=== PATIENT | female | born 1945 | race Caucasian/White ===

== ENCOUNTER 2023-07-05 10:14 | Emergency (ER) | payer OTHER, MEDICARE, SELFPAY ==
[2023-07-05 10:41] VITALS: BP 161/104
--- NOTE | 2023-07-05 14:00 | ED.GENMED ---
History of Present Illness
General
Chief Complaint: Head Injury
Source: patient
Exam Limitations: none
Time Seen by Provider: 07/05/23 12:36
Nursing documentation reviewed up to this point in time: agreed with
Travel History
Have you had any contact with someone who has COVID-19?: No
Do you have any symptoms of coronavirus? Fever > 100 degrees, chills, cough, shortness of breath, sore throat, loss of taste or smell, muscle aches, or headache?: No
History of Present Illness
History of Present Illness:
78-year-old female was at work. 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 She denies loss of consciousness. She is not on blood thinners. She had a
headache but denies now. She denies any nausea vomiting neck pain upper or lower extremity pain. No other complaints.
Past History
Past History
ED Past Medical History: HTN, Hypercholesterolemia, Renal failure and Other (diverticulitis)
ED Past Surgical History: Bowel resection, Cholecystectomy and Gynecological
Social History
Tobacco: Non-smoker
Alcohol: None
Drug: None
Living: with family
Employment: Employed
Family History
Family History: Other (n/c)
Review of Systems
Review of Systems
Allergies reviewed?: Yes
All Other Systems: ROS reviewed and negative except as documented in HPI and ROS
Constitutional: Reports no symptoms; Denies fever, fatigue or chills
Respiratory: Reports no symptoms
Cardiac: Reports no symptoms
ABD/GI: Reports no symptoms; Denies nausea or vomiting
Musculoskeletal: Reports no symptoms
Skin: Reports other (laceration to right head )
Neurological: Reports headache (Patient had headache after injury headache since resolved no loss of conscious)
Hematologic/Lymphatic: Reports no symptoms
Psychiatric: Reports no symptoms
Phy Exam
General Physical Exam
General Presentation: no apparent distress
General age: appears stated age
General Skin: warm and dry
General Habitus: normal
General Mental: alert
General Hydration: appears well hydrated
ENT Exam
ENT Exam: EOMI and neck supple
Eye Exam
Eye Exam: PERRL and EOMI
Eye Exam General: PERRL: bilateral and EOM intact: bilateral
Pupil Exam: Bilateral: round and reactive
Neurological Exam
Neurological Exam: alert, oriented x3, no motor deficits and no sensory deficits
[place] Coma Scale
Eye Opening: Spontaneous
Verbal Response: Oriented
Motor Response: Obeys Commands
GCS Total Score: 15
Musculoskeletal Exam
Musculoskeletal Exam: full ROM and other (No hematoma to head no bony cervical spine thoracic or lumbar tenderness full range of motion all extremities)
Skin Exam
Skin Exam: normal color, warm/dry and other (Less than 1/2 cm partial-thickness laceration with surrounding abrasion to right head temporal area)
Psychiatric Exam
Psychiatric Exam: normal mood/affect
Course
Orders/Labs/Results
Orders:
Orders
07/05/23 12:56
CT Cervical Spine W/o Iv Contr Urgent
Comment:
Reason For Exam: trauma
CT Head W/o Iv Contrast Urgent
Comment:
Reason For Exam: trauma
Vital Signs
Initial and Last Documented VS:
Initial Vital Signs
Temp Pulse Resp BP Pulse Ox
97.8 F 72 16 161/104 98
07/05/23 10:41 07/05/23 10:41 07/05/23 10:41 07/05/23 10:41 07/05/23 10:41
Last Documented Vital Signs
Temp Pulse Resp BP Pulse Ox
97.8 F 72 16 161/104 98
07/05/23 10:41 07/05/23 10:41 07/05/23 10:41 07/05/23 10:41 07/05/23 10:41
Procedures
Laceration Closure
Right Lateral Head:
Status of Wound: clean
Size of Wound in cm: 0.5
Description of Wound Edges: sharp
Preparation: cleaned with saline
Revision/Debridement: irrigate-direct pressure
Type of Closure: Dermabond-skin glue
MDM/Problems Addressed
Differential Diagnosis Includes:
Not limited to head injury intracranial hemorrhage, laceration abrasion.
MDM/Problems Addressed:
78-year-old female describes mechanical fall at work hitting the right side of her head no blood thinners or loss of consciousness headache has since resolved. Patient awake alert no acute distress able to give history. No other injuries. Small
laceration to right lateral head was repaired as documented. CT head and cervical spine negative. Patient is up-to-date on tetanus. Wound care reviewed.
*Radiology
Radiology exam reviewed: radiology read reviewed
*Pulse Oximetry
Patient hypoxic: no
*Critical Care Note
Total Time (30-74mins, 75-104mins- exclusive of procedures): Not Applicable
ED Attending Note
-
Portions of this chart may have been created with voice recognition software.� Occasional wrong word or��sound alike� substitutions may have occurred due to the inherent limitations of voice recognition software.
Discharge Plan
Departure
Patient Disposition: Home (Routine Discharge)
Date of Disposition: 07/05/23
Time of Disposition: 14:09
Patient with high blood pressure during this ER visit?: Yes
Covid-19: Not Applicable
Discharge Problem:
Head injury
Instructions: Laceration Repair With Glue (DC), Head Injury in Adults (DC), BLOOD PRESSURE
Prescriptions:
No Action
calcium carbonate [Oyster Shell Calcium 500] 500 MG tablet
500 mg PO BID
escitalopram oxalate 20 MG tablet
20 mg PO DAILY
rosuvastatin 10 MG tablet
10 mg PO DAILY
bupropion HCl 150 MG tablet extended release 24 hr
150 mg PO HS
cholecalciferol (vitamin D3) 1,000 UNITS tablet
2,000 units PO DAILY
multivitamin with folic acid [Tab-A-Sapna] 1 TABLET tablet
1 tab PO DAILY
valsartan 80 MG tablet
80 mg PO DAILY
PreserVision AREDS-2 1 EACH capsule
1 ea PO BID
acetaminophen 325 MG tablet
325 mg PO Q6 PRN (Reason: pain) Qty: 30 0RF
calcitriol 0.25 mcg Capsule
0.25 mcg PO Q48H
Prolia 60 mg/mL Syringe
60 mg SC [id number]
Rx Instructions:
Next dose 04/2023
albuterol sulfate [ProAir HFA] 90 mcg/actuation HFA aerosol inhaler
1 puff inhalation Q4HPRN PRN (Reason: shortness of breath) Qty: 6.7 0RF
prednisone 20 mg tablet
40 mg PO DAILY 5 Days Qty: 10 0RF
Referrals:
Flora Foreman MD [Family Provider] -
Activity Restrictions/Additional Instructions:
Keep wound clean and dry for 24 hours after 24 hours you can lightly wet wound.
Glue will flake off in 5 to 7 days. You may take Tylenol if needed. Follow-up with family doctor inthe next several days for reevaluation return if any worsening of symptoms.
Interventions
Interventions:
*Risk Screen - Suicide Last Done: 07/05/23 10:41
*General Assessment Last Done: 07/05/23 10:41
*Neglect/Abuse Screening Last Done: 07/05/23 10:41
ED- Neurological Assessment Last Done: 07/05/23 11:40
ED-Skin Assessment Last Done: 07/05/23 13:00
[2023-07-05 14:22] VITALS: BP 198/104
[2023-07-05] MEDS: ADACEL 0.5 ML IM (14:26)
== END 2023-07-05 14:31 | disposition home or self-care (01) ==
LOC: EMR 10:14
PROVIDERS: EMERGENCY PHYSICIAN Emergency Medicine; FAMILY PHYSICIAN Internal Medicine
DX: S09.90XA Unspecified injury of head, initial encounter (principal); W19.XXXA Unspecified fall, initial encounter; Z23 Encounter for immunization; E78.00 Pure hypercholesterolemia, unspecified; I10 Essential (primary) hypertension; Z90.49 Acquired absence of other specified parts of digestive tract
CPT/HCPCS: 99284; 90471; 70450; 72125; 90715

== ENCOUNTER → 2023-10-14 14:06 | Outpatient (REF) | payer MEDICARE, OTHER, SELFPAY | LOC: HWRAD 14:06 | PROVIDERS: ATTENDING PHYSICIAN Internal Medicine | DX: M54.50 Low back pain, unspecified (principal) | CPT/HCPCS: 72110 ==

== ENCOUNTER → 2023-11-13 11:27 | Outpatient (REF) | payer MEDICARE, OTHER, SELFPAY | LOC: CLAB 11:27 | PROVIDERS: ATTENDING PHYSICIAN Specialist | DX: C67.9 Malignant neoplasm of bladder, unspecified (principal) | CPT/HCPCS: 88112 ==

== ENCOUNTER → 2023-12-04 10:32 | Outpatient (REF) | payer MEDICARE, OTHER, SELFPAY ==
[2023-12-04 12:29] LABS: ALT (SGPT) 20 U/L (0-35); AST (SGOT) 30 U/L (14-36); Albumin 4.1 g/dl (3.5-5.0); Alkaline Phosphatase 76 U/L (38-126); Blood Urea Nitrogen 47 mg/dl (7-17); Calcium 11.2 mg/dl (8.4-10.2); Carbon Dioxide 27 mmol/L (22-30); Chloride 108 mmol/L (98-107); Glucose 81 mg/dl (70-99); HDL Cholesterol 55 mg/dl; LDL Cholesterol, Calculated 68 mg/dl; Potassium 4.6 mmol/L (3.5-5.1); Sodium 140 mmol/L (135-145); Total Bilirubin 0.5 mg/dl (0.2-1.3); Total Cholesterol 161 mg/dl (50-199); Total Protein 6.2 g/dl (6.3-8.2); Triglyceride 191 mg/dl (10-149); Very Low Density Lipoprotein 38 mg/dl (0-30); eGFR 17.62
== END ==
LOC: HWLAB 10:32
PROVIDERS: ATTENDING PHYSICIAN Internal Medicine
DX: I10 Essential (primary) hypertension (principal); E78.5 Hyperlipidemia, unspecified
CPT/HCPCS: 36415; 80053; 80061

== ENCOUNTER → 2023-12-11 13:28 | Outpatient (REF) | payer MEDICARE, OTHER, SELFPAY | LOC: HWWDC 13:28 | PROVIDERS: ATTENDING PHYSICIAN Internal Medicine | DX: Z12.31 Encounter for screening mammogram for malignant neoplasm of breast (principal) | CPT/HCPCS: 77063; 77067 ==

== ENCOUNTER → 2023-12-19 11:46 | Outpatient (REF) | payer MEDICARE, OTHER, SELFPAY ==
[2023-12-19 15:45] LABS: Urine Albumin Trace (Neg - Trace); Urine Bilirubin Negative (Negative); Urine Character Clear (Clear); Urine Color Yellow; Urine Glucose Negative (Negative); Urine Ketone Negative (Negative); Urine Leukocyte Negative (Negative); Urine Nitrite Negative (Negative); Urine Occult Blood Negative (Negative); Urine Specific Gravity 1.025 (<1.030); Urine Urobilinogen Negative (Neg - 1+)
[2023-12-19 15:57] LABS: Blood Urea Nitrogen 49 mg/dl (7-17); Calcium 10.2 mg/dl (8.4-10.2); Carbon Dioxide 23 mmol/L (22-30); Glucose 73 mg/dl (70-99); Phosphorus 3.4 mg/dl (2.5-4.5); Sodium 139 mmol/L (135-145); eGFR 18.44
[2023-12-19 16:02] LABS: Chloride 108 mmol/L (98-107)
[2023-12-19 16:22] LABS: Protein/creatinine Ratio 0.2; Urine Protein 33 mg/dl
== END ==
LOC: HWLAB 11:46
PROVIDERS: ATTENDING PHYSICIAN Specialist; FAMILY PHYSICIAN Internal Medicine
DX: I10 Essential (primary) hypertension (principal); N18.30 Chronic kidney disease, stage 3 unspecified; N25.81 Secondary hyperparathyroidism of renal origin; E83.52 Hypercalcemia
CPT/HCPCS: 36415; 80048; 81003; 82570; 84100; 84156

== ENCOUNTER → 2024-01-10 11:47 | Outpatient (REF) | payer MEDICARE, OTHER, SELFPAY ==
[2024-01-10 16:00] LABS: Blood Urea Nitrogen 44 mg/dl (7-17); Carbon Dioxide 24 mmol/L (22-30); Chloride 107 mmol/L (98-107); Glucose 85 mg/dl (70-99); Sodium 143 mmol/L (135-145); eGFR 22.53
== END ==
LOC: HWLAB 11:47
PROVIDERS: ATTENDING PHYSICIAN Specialist; FAMILY PHYSICIAN Internal Medicine
DX: I10 Essential (primary) hypertension (principal); N18.30 Chronic kidney disease, stage 3 unspecified; N28.1 Cyst of kidney, acquired; R80.9 Proteinuria, unspecified
CPT/HCPCS: 36415; 80048

== ENCOUNTER → 2024-02-05 12:59 | Outpatient (REF) | payer MEDICARE, OTHER, SELFPAY ==
[2024-02-05 16:58] LABS: Intact PTH 87.7 pg/ml (13.6-85.8)
[2024-02-05 17:38] LABS: Blood Urea Nitrogen 52 mg/dl (7-17); Calcium 11.8 mg/dl (8.4-10.2); Carbon Dioxide 24 mmol/L (22-30); Chloride 106 mmol/L (98-107); Glucose 88 mg/dl (70-99); Potassium 4.7 mmol/L (3.5-5.1); Sodium 141 mmol/L (135-145); eGFR 17.62
== END ==
LOC: HWLAB 12:59
PROVIDERS: ATTENDING PHYSICIAN Specialist; FAMILY PHYSICIAN Internal Medicine
DX: I10 Essential (primary) hypertension (principal); N18.30 Chronic kidney disease, stage 3 unspecified; C67.9 Malignant neoplasm of bladder, unspecified
CPT/HCPCS: 36415; 80048; 83970

== ENCOUNTER → 2024-04-13 13:05 | Outpatient (REF) | payer MEDICARE, OTHER, SELFPAY ==
[2024-04-13 14:09] LABS: 24 Hour Urine Total Volume 1400 ml
[2024-04-13 14:39] LABS: Urine Calcium 4.5 mg/dl
[2024-04-13 14:40] LABS: 24 Hour Urine Creatinine 0.991 gm/day (0.8-1.8)
[2024-04-13 14:50] LABS: Calcium 9.4 mg/dl (8.4-10.2); Phosphorus 2.7 mg/dl (2.5-4.5)
[2024-04-13 15:01] LABS: Vitamin D, 25-OH*** 62.8 ng/mL (30-80)
[2024-04-15 21:39] LABS: Free Kappa Light Chains,Quant 37.99 mg/L (3.30-19.40); Free Lambda Light Chains,Quant 22.29 mg/L (5.71-26.30)
[2024-04-15 22:11] LABS: Vitamin D 1,25 Dihydroxy 75.7 pg/mL (19.9-79.3)
[2024-04-16 01:20] LABS: Angiotensin-1-converting Enzym 55 U/L (16-85)
[2024-04-17 01:09] LABS: Albumin 4.28 g/dL (3.75-5.01); Alpha 1 Globulin 0.27 g/dL (0.19-0.46); Alpha 2 Globulin 0.63 g/dL (0.48-1.05); SPEP IFE Reflex Not Done; Total Protein-Electrophoresis 6.6 g/dL (6.3-8.2)
== END ==
LOC: REG 13:05
PROVIDERS: ATTENDING PHYSICIAN Specialist
DX: I10 Essential (primary) hypertension (principal); N18.30 Chronic kidney disease, stage 3 unspecified; E83.52 Hypercalcemia
CPT/HCPCS: 36415; 81050; 82164; 82306; 82310; 82340; 82570; 82652; 83519; 83521; 84100; 84155; 84165

== ENCOUNTER → 2024-05-15 12:31 | Outpatient (REF) | payer MEDICARE, OTHER, SELFPAY ==
[2024-05-15 16:17] LABS: Blood Urea Nitrogen 35 mg/dl (7-17); Calcium 9.4 mg/dl (8.4-10.2); Carbon Dioxide 21 mmol/L (22-30); Chloride 109 mmol/L (98-107); Glucose 82 mg/dl (70-99); Potassium 4.4 mmol/L (3.5-5.1); Sodium 140 mmol/L (135-145); eGFR 26.69
== END ==
LOC: HWLAB 12:31
PROVIDERS: ATTENDING PHYSICIAN Specialist; FAMILY PHYSICIAN Internal Medicine
DX: I10 Essential (primary) hypertension (principal); N18.30 Chronic kidney disease, stage 3 unspecified; C67.9 Malignant neoplasm of bladder, unspecified; E83.52 Hypercalcemia
CPT/HCPCS: 36415; 80048

== ENCOUNTER → 2024-07-06 11:48 | Outpatient (REF) | payer MEDICARE, OTHER, SELFPAY ==
[2024-07-06 15:46] LABS: ALT (SGPT) 29 U/L (0-35); AST (SGOT) 34 U/L (14-36); Albumin 4.3 g/dl (3.5-5.0); Alkaline Phosphatase 103 U/L (38-126); Blood Urea Nitrogen 29 mg/dl (7-17); Calcium 10.8 mg/dl (8.4-10.2); Carbon Dioxide 25 mmol/L (22-30); Chloride 107 mmol/L (98-107); Glucose 90 mg/dl (70-99); HDL Cholesterol 60 mg/dl; LDL Cholesterol, Calculated 46 mg/dl; Potassium 4.5 mmol/L (3.5-5.1); Sodium 141 mmol/L (135-145); Total Bilirubin 0.7 mg/dl (0.2-1.3); Total Cholesterol 133 mg/dl (50-199); Total Protein 6.3 g/dl (6.3-8.2); Triglyceride 138 mg/dl (10-149); Very Low Density Lipoprotein 27 mg/dl (0-30)
[2024-07-06 15:52] LABS: % Basophils 1.4 % (0-2); % Lymphocytes 31.3 % (20.5-51.1); % Neutrophils 49.3 % (42.2-75.2); Absolute Basophils 0.1 10^3/uL (0-0.2); Absolute Eosinophils 0.2 10^3/uL (0-0.7); Absolute Lymphocytes 1.1 10^3/uL (1.2-3.4); Absolute Monocytes 0.4 10^3/uL (0.1-0.6); Absolute Neutrophils 1.7 10^3/uL (1.4-6.5); Hematocrit 33.3 % (37.0-47.0); Mean Corpuscular Volume 90.7 fL (81.0-99.0); Mean Platelet Volume 11.7 fL (7.4-10.4); Nucleated Red Blood Cells % 0 %; Platelet Count 121 10^3/uL (130-400); Red Blood Cell Count 3.67 10^6/uL (4.20-5.40); Red Cell Dist. Width 12.4 % (11.5-14.5); White Blood Cell Count 3.5 10^3/uL (4.8-10.8)
[2024-07-06 16:12] LABS: TSH Reflex To Free T4 2.65 uIU/ml (0.47-4.68)
== END ==
LOC: HWLAB 11:48
PROVIDERS: ATTENDING PHYSICIAN Internal Medicine
DX: R19.7 Diarrhea, unspecified (principal); E78.2 Mixed hyperlipidemia; R53.83 Other fatigue
CPT/HCPCS: 36415; 80053; 80061; 84443; 85025

== ENCOUNTER → 2024-07-29 16:41 | Outpatient (REF) | payer MEDICARE, OTHER, SELFPAY | LOC: CLAB 16:41 | PROVIDERS: ATTENDING PHYSICIAN Specialist | DX: N39.0 Urinary tract infection, site not specified (principal) | CPT/HCPCS: 87086; 87088; 87186 ==

== ENCOUNTER → 2024-10-27 10:28 | Outpatient (REF) | payer MEDICARE, OTHER, SELFPAY ==
[2024-10-27 13:28] LABS: Blood Urea Nitrogen 41 mg/dl (7-17); Calcium 9.9 mg/dl (8.4-10.2); Carbon Dioxide 20 mmol/L (22-30); Chloride 116 mmol/L (98-107); Glucose 81 mg/dl (70-99); Phosphorus 3.4 mg/dl (2.5-4.5); Potassium 4.5 mmol/L (3.5-5.1); Sodium 144 mmol/L (135-145); eGFR 26.69
[2024-10-27 13:34] LABS: Protein/creatinine Ratio 0.4; Urine Protein 72 mg/dl
[2024-10-28 16:49] LABS: Intact PTH 480.1 pg/ml (13.6-85.8)
== END ==
LOC: HWLAB 10:28
PROVIDERS: ATTENDING PHYSICIAN Specialist; FAMILY PHYSICIAN Internal Medicine
DX: I10 Essential (primary) hypertension (principal); N18.30 Chronic kidney disease, stage 3 unspecified; E83.52 Hypercalcemia
CPT/HCPCS: 36415; 80048; 82570; 83970; 84100; 84156

== ENCOUNTER → 2024-11-02 08:58 | Outpatient (REF) | payer MEDICARE, OTHER, SELFPAY ==
[2024-11-02 10:09] LABS: ALT (SGPT) 29 U/L (0-35); AST (SGOT) 30 U/L (14-36); Albumin 4.2 g/dl (3.5-5.0); Alkaline Phosphatase 100 U/L (38-126); Blood Urea Nitrogen 29 mg/dl (7-17); Calcium 9.2 mg/dl (8.4-10.2); Carbon Dioxide 21 mmol/L (22-30); Chloride 118 mmol/L (98-107); Glucose 90 mg/dl (70-99); HDL Cholesterol 67 mg/dl; LDL Cholesterol, Calculated 64 mg/dl; Potassium 4.4 mmol/L (3.5-5.1); Sodium 144 mmol/L (135-145); Total Bilirubin 0.3 mg/dl (0.2-1.3); Total Cholesterol 152 mg/dl (50-199); Total Protein 6.5 g/dl (6.3-8.2); Triglyceride 107 mg/dl (10-149); Very Low Density Lipoprotein 21 mg/dl (0-30)
== END ==
LOC: REG 08:58
PROVIDERS: ATTENDING PHYSICIAN Specialist; FAMILY PHYSICIAN Internal Medicine
DX: N18.30 Chronic kidney disease, stage 3 unspecified (principal); I10 Essential (primary) hypertension; E83.52 Hypercalcemia; E78.5 Hyperlipidemia, unspecified
CPT/HCPCS: 36415; 80053; 80061; 83519

== ENCOUNTER → 2024-12-11 13:06 | Outpatient (REF) | payer MEDICARE, OTHER, SELFPAY | LOC: HWWDC 13:06 | PROVIDERS: ATTENDING PHYSICIAN Internal Medicine | DX: Z12.31 Encounter for screening mammogram for malignant neoplasm of breast (principal); M81.0 Age-related osteoporosis without current pathological fracture | CPT/HCPCS: 77063; 77067; 77080 ==

== ENCOUNTER → 2025-01-11 15:12 | Outpatient (REF) | payer MEDICARE, OTHER, SELFPAY | LOC: HWRAD 15:12 | PROVIDERS: ATTENDING PHYSICIAN Internal Medicine | DX: M25.9 Joint disorder, unspecified (principal); M79.652 Pain in left thigh | CPT/HCPCS: 71130; 73552 ==

== ENCOUNTER → 2025-01-20 10:43 | Outpatient (REF) | payer MEDICARE, OTHER, SELFPAY | LOC: CLAB 10:43 | PROVIDERS: ATTENDING PHYSICIAN Specialist | DX: C67.2 Malignant neoplasm of lateral wall of bladder (principal) | CPT/HCPCS: 88112 ==

== ENCOUNTER → 2025-01-29 07:01 | Outpatient (REF) | payer MEDICARE, OTHER, SELFPAY ==
[2025-01-29 09:48] LABS: Hematocrit 33.1 % (37.0-47.0); Hemoglobin 10.6 g/dL (12.0-16.0); Mean Corp Hgb Conc. 32.0 g/dL (33.0-37.0); Mean Corpuscular Volume 93.8 fL (81.0-99.0); Nucleated Red Blood Cells % 0 %; Platelet Count 124 10^3/uL (130-400); Red Cell Dist. Width 12.6 % (11.5-14.5)
[2025-01-29 11:02] LABS: Folate > 20.0 ng/ml (2.76-20); Vitamin B12 791 pg/ml (239-931)
== END ==
LOC: HWLAB 07:01
PROVIDERS: ATTENDING PHYSICIAN Psychiatry & Neurology Neurology; FAMILY PHYSICIAN Internal Medicine
DX: R41.3 Other amnesia (principal)
CPT/HCPCS: 36415; 82607; 82746; 85025

== ENCOUNTER 2025-02-13 16:41 | Emergency (ER) | payer MEDICARE, OTHER, SELFPAY ==
[2025-02-13 16:45] VITALS: BP 161/94
[2025-02-13 17:19] LABS: Hematocrit 29.8 % (37.0-47.0); Hemoglobin 9.7 g/dL (12.0-16.0); Mean Corp Hgb Conc. 32.6 g/dL (33.0-37.0); Mean Corpuscular Volume 92.0 fL (81.0-99.0); Nucleated Red Blood Cells % 0 %; Platelet Count 124 10^3/uL (130-400); Red Cell Dist. Width 12.7 % (11.5-14.5)
[2025-02-13 17:27] LABS: ALT (SGPT) 38 U/L (0-35); AST (SGOT) 47 U/L (14-36); Albumin 4.1 g/dl (3.5-5.0); Alkaline Phosphatase 93 U/L (38-126); Blood Urea Nitrogen 36 mg/dl (7-17); Calcium 9.2 mg/dl (8.4-10.2); Carbon Dioxide 22 mmol/L (22-30); Chloride 115 mmol/L (98-107); Glucose 114 mg/dl (70-99); Lipase 388 U/L (23-300); Potassium 4.9 mmol/L (3.5-5.1); Sodium 141 mmol/L (135-145); Total Protein 6.4 g/dl (6.3-8.2); eGFR 28.48
[2025-02-13 19:51] VITALS: BMI 27.4
[2025-02-13] MEDS: NSS 1000 IV (19:52)
[2025-02-13 19:56] VITALS: BP 170/90
[2025-02-13] MEDS: OMNIPAQUE 50 ML PO (19:57)
[2025-02-13 20:00] VITALS: BP 178/90
--- NOTE | 2025-02-13 20:24 | ED.GENMED ---
History of Present Illness
<Paula Alex PA-C - Last Filed: 02/16/25 09:10>
General
Chief Complaint: Abdominal Symptoms
Source: patient
Exam Limitations: none
Time Seen by Provider: 02/13/25 18:56
Nursing documentation reviewed up to this point in time: agreed with
History of Present Illness
History of Present Illness:
SEE Mdm
Past History
<Paula Alex PA-C - Last Filed: 02/16/25 09:10>
Past History
ED Past Medical History: HTN, Hypercholesterolemia, Renal failure and Other (diverticulitis)
ED Past Surgical History: Bowel resection, Cholecystectomy and Gynecological
Social History
Tobacco: Non-smoker
Alcohol: None
Drug: None
Living: with family
Employment: Employed
Family History
Family History: Other (n/c)
Review of Systems
<Paula Alex PA-C - Last Filed: 02/16/25 09:10>
Review of Systems
Allergies reviewed?: Yes
All Other Systems: Not applicable
Phy Exam
<MARY ELLEN Norman Last Filed: 02/16/25 09:10>
Physical Exam
Physical Exam:
GENERAL: Alert , in no apparent distress
EYE: pupils equal and reactive
NECK: Supple
ENT: o/p clr, mmm.
CARDIAC: Regular rate and rhythm .
LUNGS: Clear breath sounds bilaterally, no acute respiratory distress, no wheezes/rales/rhonchi
ABDOMEN: Soft,mild tenderness umbilical; no r/g, no cvat, normal bowel sounds
NEUROLOGICAL: Alert and oriented, no focal neuro deficits
SKIN: Warm and dry, skin intact.
MUSCULOSKELETAL: No edema, well perfused. neg lisa's sign
PSYCH: Normal and appropriate interaction.
Course
<Paula Alex PA-C - Last Filed: 02/16/25 09:10>
Orders/Labs/Results
Orders:
Orders
02/13/25 16:48
Electrocardiogram (*1) Urgent
Reason for Study: Abdominal Pain
EKG- Treatment ONCE
02/13/25 16:51
Complete Blood Count/With Diff Urgent
Comprehensive Metabolic Panel Urgent
Lipase Urgent
02/13/25 19:38
CT Abd/pel (oral only)-[facility] Only Urgent
Comment:
Reason For Exam: abd pain, diarrhea, levated lipase
0.9% Sodium Chloride 1000 ml [Nss] 1,000 ml IV BOLUS
Iohexol [Omnipaque] See Protocol PO NOW STA
Abnormal Lab Results
02/13/25
16:51
WBC 3.8 L 10^3/uL
(4.8-10.8)
RBC 3.24 L 10^6/uL
(4.20-5.40)
Hgb 9.7 L g/dL
(12.0-16.0)
Hct 29.8 L %
(37.0-47.0)
MCHC 32.6 L g/dL
(33.0-37.0)
Plt Count 124 L 10^3/uL
(130-400)
MPV 10.5 H fL
(7.4-10.4)
Absolute Lymphs (auto) 1.0 L 10^3/uL
(1.2-3.4)
Monocytes % 9.6 H %
(1.7-9.3)
Chloride 115 H mmol/L
(98-107)
BUN 36 H mg/dl
(7-17)
Creatinine 1.8 H mg/dL
(0.6-1.0)
Glucose 114 H mg/dl
(70-99)
AST 47 H U/L
(14-36)
ALT 38 H U/L
(0-35)
Lipase 388 H U/L
(23-300)
02/13/25 16:51
02/13/25 16:51
Vital Signs
Initial and Last Documented VS:
Initial Vital Signs
Temp Pulse Resp BP Pulse Ox
36.7 C 75 18 161/94 96
02/13/25 16:45 02/13/25 16:45 02/13/25 16:45 02/13/25 16:45 02/13/25 16:45
Last Documented Vital Signs
Temp Pulse Resp BP Pulse Ox
36.7 C 75 18 179/92 100
02/13/25 16:45 02/13/25 16:45 02/13/25 16:45 02/13/25 22:00 02/13/25 22:15
<Gemini Delgado MD - Last Filed: 02/13/25 23:29>
Orders/Labs/Results
Orders:
Orders
02/13/25 16:48
Electrocardiogram (*1) Urgent
Reason for Study: Abdominal Pain
EKG- Treatment ONCE
02/13/25 16:51
Complete Blood Count/With Diff Urgent
Comprehensive Metabolic Panel Urgent
Lipase Urgent
02/13/25 19:38
CT Abd/pel (oral only)-[facility] Only Urgent
Comment:
Reason For Exam: abd pain, diarrhea, levated lipase
0.9% Sodium Chloride 1000 ml [Nss] 1,000 ml IV BOLUS
Iohexol [Omnipaque] See Protocol PO NOW STA
Abnormal Lab Results
02/13/25
16:51
WBC 3.8 L 10^3/uL
(4.8-10.8)
RBC 3.24 L 10^6/uL
(4.20-5.40)
Hgb 9.7 L g/dL
(12.0-16.0)
Hct 29.8 L %
(37.0-47.0)
MCHC 32.6 L g/dL
(33.0-37.0)
Plt Count 124 L 10^3/uL
(130-400)
MPV 10.5 H fL
(7.4-10.4)
Absolute Lymphs (auto) 1.0 L 10^3/uL
(1.2-3.4)
Monocytes % 9.6 H %
(1.7-9.3)
Chloride 115 H mmol/L
(98-107)
BUN 36 H mg/dl
(7-17)
Creatinine 1.8 H mg/dL
(0.6-1.0)
Glucose 114 H mg/dl
(70-99)
AST 47 H U/L
(14-36)
ALT 38 H U/L
(0-35)
Lipase 388 H U/L
(23-300)
02/13/25 16:51
02/13/25 16:51
Vital Signs
Initial and Last Documented VS:
Initial Vital Signs
Temp Pulse Resp BP Pulse Ox
36.7 C 75 18 161/94 96
02/13/25 16:45 02/13/25 16:45 02/13/25 16:45 02/13/25 16:45 02/13/25 16:45
Last Documented Vital Signs
Temp Pulse Resp BP Pulse Ox
36.7 C 75 18 179/92 100
02/13/25 16:45 02/13/25 16:45 02/13/25 16:45 02/13/25 22:00 02/13/25 22:15
<Paula Alex PA-C - Last Filed: 02/16/25 09:10>
MDM/Problems Addressed
Differential Diagnosis Includes:
see MDM
MDM/Problems Addressed:
Note:
CHIEF COMPLAINT(S)
Diarrhea and abdominal pain.
HISTORY OF PRESENT ILLNESS
The patient 79 y/o F with h/o htn, hld, ckd, divertic is experiencing diarrhea and abdominal pain, which began approximately one week ago. The pain initially started in the mid abdomen with diarrhea, 2-3 times a day , watery not blodoy. The diarrhea
occurs multiple times a day. The patient reported waking up with symptoms persisting consistently.
last night she got more epigastric pain that has been mild today
she has not had nausea/vomiting/cp, sob/fever.
She denies prior episodes of similar symptoms and any recent antibiotic use, which could commonly lead to bowel infections. The patient also denies recent hospitalizations. Her spouse, who has cancer, does not share these symptoms. The patient
denies alcohol consumption.
PAST SURGICAL HISTORY
She has a history of gallbladder surgery, during which some additional material that was 'puffed up' was removed, indicating possible prior complications related to the gallbladder.
SOCIAL HISTORY
The patient denies alcohol use and mentions her spouse has cancer.
PHYSICAL EXAM
- Nursing notes reviewed and vital signs reviewed.
GENERAL: Alert , in no apparent distress
EYE: pupils equal and reactive
NECK: Supple
ENT: o/p clr, mmm.
CARDIAC: Regular rate and rhythm .
LUNGS: Clear breath sounds bilaterally, no acute respiratory distress, no wheezes/rales/rhonchi
ABDOMEN: Soft, mild epigastric tendernesss, no r/g, no cvat, normal bowel sounds
old scar from eva
NEUROLOGICAL: Alert and oriented, no focal neuro deficits
SKIN: Warm and dry, skin intact.
MUSCULOSKELETAL: No edema, well perfused. neg lisa's sign
PSYCH: Normal and appropriate interaction.
PROBLEM LIST
Acute:
- Diarrhea
- Abdominal Pain
CHRONIC
- Elevated liver markers (noted during conversation)
PLAN
- Administer intravenous fluids.
- Perform a computed tomography (CT) scan of the abdomen to evaluate for signs of colitis or infection.
- Collect a stool sample for analysis if the patient experiences another bowel movement during the stay.
- Pain management to be offered on an as-needed basis.
DIFFERENTIAL DIAGNOSIS
The Differential Diagnosis includes, in no particular order and is not limited to:
- Infectious gastroenteritis
- Clostridium difficile infection
- Colitis (infectious, ischemic, inflammatory)
- Small bowel obstruction
- Irritable bowel syndrome
- Diverticulitis
- Pancreatitis
- Gastric ulcer
- Lactose intolerance
- Liver disease-related symptoms
79 y/o F
with htn,h ld, divertic, partial colon resection
epigastric pain last night
diarrhea x 1 week
nonbloody
no vomiting
no fever
well appearing
minimal tenderness epigastric region
soft
labs reviewed,
mild lipase elevation 300s
lfts always elevated
cr baseline
cbc mild low cell lines chronic
ct ap pending
s/p dr. delgado
<Paula Alex PA-C - Last Filed: 02/16/25 09:10>
*Pulse Oximetry
SaO2: 100
Oxygen Mode of Delivery: Room air
Patient hypoxic: no (100)
*Critical Care Note
Total Time (30-74mins, 75-104mins- exclusive of procedures): Not Applicable
ED Attending Note
<Paula Alex PA-C - Last Filed: 02/16/25 09:10>
-
Portions of this chart may have been created with voice recognition software.� Occasional wrong word or��sound alike� substitutions may have occurred due to the inherent limitations of voice recognition software.
<Gemini Delgado MD - Last Filed: 02/13/25 23:29>
ED Attending Note
Patient seen and examined by attending physician: Yes
I performed the substantive portion of visit, reviewed & personally made and approve the management plan that is documented in note by myself or MODESTO.: Yes
ED Attending Note:
Patient appears well and comfortable. Abdomen is soft throughout. CAT scan shows no sign of acute diverticulitis or any acute surgical issue. I did speak to both the patient and her son about the abnormality seen on the patient's pancreas and
encouraged them to call the primary care doctor to discuss getting a possible MRI.
Discharge Plan
Departure
Patient Disposition: Home (Routine Discharge)
Date of Disposition: 02/13/25
Time of Disposition: 23:29
Patient with high blood pressure during this ER visit?: Yes
Condition: Good
Covid-19: Not Applicable
Discharge Problem:
Abdominal pain, epigastric, Acute diarrhea
Instructions: Diarrhea in teens and adults, [place] Diet, Abdominal Pain, BLOOD PRESSURE
Prescriptions:
No Action
calcium carbonate [Oyster Shell Calcium 500] 500 MG tablet
500 mg PO BID
escitalopram oxalate 20 MG tablet
20 mg PO DAILY
rosuvastatin 10 MG tablet
10 mg PO DAILY
bupropion HCl 150 MG tablet extended release 24 hr
150 mg PO HS
cholecalciferol (vitamin D3) 1,000 UNITS tablet
2,000 units PO DAILY
multivitamin with folic acid [Tab-A-Sapna] 1 TABLET tablet
1 tab PO DAILY
valsartan 80 MG tablet
80 mg PO DAILY
PreserVision AREDS-2 1 EACH capsule
1 ea PO BID
acetaminophen 325 MG tablet
325 mg PO Q6 PRN (Reason: pain) Qty: 30 0RF
calcitriol 0.25 mcg Capsule
0.25 mcg PO Q48H
Prolia 60 mg/mL Syringe
60 mg SC [id number]
Rx Instructions:
Next dose 04/2023
albuterol sulfate [ProAir HFA] 90 mcg/actuation HFA aerosol inhaler
1 puff inhalation Q4HPRN PRN (Reason: shortness of breath) Qty: 6.7 0RF
prednisone 20 mg tablet
40 mg PO DAILY 5 Days Qty: 10 0RF
Referrals:
Flora Foreman MD [Family Provider, Internal Medicine]
Activity Restrictions/Additional Instructions:
Follow-up with your primary care doctor within 1 week. Please show your primary care doctor your CAT scan report (showing an abnormality on your pancreas) because you will likely need an MRI.
Interventions
Interventions:
*Risk Screen - Suicide Last Done: 02/13/25 16:46
*General Assessment Last Done: 02/13/25 16:46
*Neglect/Abuse Screening Last Done: 02/13/25 16:46
*ED- Fall Risk Assessment Last Done: 02/13/25 23:41
*ED COVID-19 Vaccine History Last Done: 02/13/25 16:46
*ED Influenza Vaccine History Last Done: 02/13/25 16:46
*Nursing Disposition Last Done: 02/13/25 23:41
EC-Fmsiho-[id number] Assessment Last Done: 02/13/25 20:01
Discharge Date and Time
Discharge Date/Time: 02/13/25 23:44
Print Language: BELARUSIAN
[2025-02-13 21:00] VITALS: BP 176/107
[2025-02-13 22:00] VITALS: BP 179/92
== END 2025-02-13 23:44 | disposition home or self-care (01) ==
LOC: EMR 16:41
PROVIDERS: EMERGENCY PHYSICIAN Emergency Medicine; FAMILY PHYSICIAN Internal Medicine
DX: R10.13 Epigastric pain (principal); R19.7 Diarrhea, unspecified; I12.9 Hypertensive chronic kidney disease with stage 1 through stage 4 chronic kidney disease, or unspecified chronic kidney disease; N18.9 Chronic kidney disease, unspecified; E78.00 Pure hypercholesterolemia, unspecified; Z90.49 Acquired absence of other specified parts of digestive tract
CPT/HCPCS: 99284; 96360; 74176; 80053; 83690; 85025; 93005

== ENCOUNTER → 2025-02-18 11:11 | Outpatient (REF) | payer MEDICARE, OTHER, SELFPAY ==
[2025-02-18 15:07] LABS: Hematocrit 31.8 % (37.0-47.0); Hemoglobin 10.6 g/dL (12.0-16.0); Mean Corp Hgb Conc. 33.3 g/dL (33.0-37.0); Mean Corpuscular Volume 93.8 fL (81.0-99.0); Nucleated Red Blood Cells % 0.7 %; Platelet Count 110 10^3/uL (130-400); Red Cell Dist. Width 12.9 % (11.5-14.5)
[2025-02-18 15:20] LABS: ALT (SGPT) 31 U/L (0-35); AST (SGOT) 38 U/L (14-36); Blood Urea Nitrogen 28 mg/dl (7-17); Calcium 9.9 mg/dl (8.4-10.2); Carbon Dioxide 21 mmol/L (22-30); Chloride 114 mmol/L (98-107); Glucose 75 mg/dl (70-99); Lipase 123 U/L (23-300); Potassium 4.9 mmol/L (3.5-5.1); Sodium 141 mmol/L (135-145); eGFR 28.48
== END ==
LOC: HWLAB 11:11
PROVIDERS: ATTENDING PHYSICIAN Internal Medicine
DX: D61.818 Other pancytopenia (principal); R89.9 Unspecified abnormal finding in specimens from other organs, systems and tissues
CPT/HCPCS: 80048; 83690; 84450; 84460; 85025

== ENCOUNTER → 2025-03-13 07:00 | Outpatient (REF) | payer MEDICARE, OTHER, SELFPAY | LOC: MRI 07:00 | PROVIDERS: ATTENDING PHYSICIAN Physical Medicine & Rehabilitation; PRIMARYCARE PHYSICIAN Internal Medicine | DX: R41.3 Other amnesia (principal); E64.9 Sequelae of unspecified nutritional deficiency | CPT/HCPCS: 70551; 74181 ==